=== PATIENT | female | born 1950 | race Caucasian/White ===

== ENCOUNTER 2016-09-26 11:23 | Outpatient (CLI) | payer OTHER ==
[2016-09-26] MEDS ORDERED: NALOXONE HCL 0.4 MG/ML INJ ONE (11:47)
[2016-09-26] MEDS ORDERED: FLUMAZENIL 0.5 MG/5 ML MDV IVP ONE (11:47)
[2016-09-26] MEDS ORDERED: MIDAZOLAM 2 MG/2 ML VIAL ONE (11:47)
[2016-09-26] MEDS ORDERED: fentaNYL 100 MCG/2 ML INJ ONE (11:47)
== END 2016-09-26 14:57 | disposition home or self-care (01) ==
LOC: FIMAGING 11:23
PROVIDERS: ATTEND Orthopaedic Surgery
PROC: BP38ZZZ Magnetic Resonance Imaging (MRI) of Right Shoulder (ICD-10-PCS; principal; 2016-09-26 12:35)
DX: M75.111 Incomplete rotator cuff tear or rupture of right shoulder, not specified as traumatic (principal); M75.51 Bursitis of right shoulder; M75.21 Bicipital tendinitis, right shoulder; M25.511 Pain in right shoulder
CPT/HCPCS: 73221; 99152; 99153; J2250; J3010; J2310

== ENCOUNTER → 2016-12-18 | Outpatient (CLI) | payer OTHER | LOC: BMCIMAGING 08:42 | PROVIDERS: ATTEND Family Medicine | DX: Z12.31 Encounter for screening mammogram for malignant neoplasm of breast (principal); Z80.3 Family history of malignant neoplasm of breast | CPT/HCPCS: G0202 ==

== ENCOUNTER → 2018-01-29 | Outpatient (CLI) | payer OTHER | LOC: BMCIMAGING 14:40 | PROVIDERS: ATTEND Family Medicine | DX: Z12.31 Encounter for screening mammogram for malignant neoplasm of breast (principal); Z80.3 Family history of malignant neoplasm of breast ==